=== PATIENT | female | born 1950 | race Caucasian/White ===

== ENCOUNTER 2019-08-31 12:03 | Emergency (ER) | payer MEDICARE, OTHER ==
[~2019-08-31] VITALS: Ht 162.6 cm; Wt 73.0 kg
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
--- NOTE | 2019-08-31 13:36 | NUR ---
BAIRON PA IN TO DISCUSS ALL RADIOLOGY EXAMS. PT GIVEN DISCHARGE INSTRUCTIONS. PT VERBALIZES UNDERSTANDING OF ALL INSTRUCTIONS AND FOLLOW UP. PT AMBULATED OUT OF ED PER PEDIS WITH DAUGHTER.
[2019-08-31 13:37] VITALS: BP 118/75
== END 2019-08-31 13:39 | disposition home or self-care (01) ==
LOC: ED 13:20
DX: S00.83XA Contusion of other part of head, initial encounter (principal); D32.0 Benign neoplasm of cerebral meninges; M48.02 Spinal stenosis, cervical region; V49.40XA Driver injured in collision with unspecified motor vehicles in traffic accident, initial encounter; Y93.89 Activity, other specified; Y92.488 Other paved roadways as the place of occurrence of the external cause; Y99.8 Other external cause status
CPT/HCPCS: 70450; 70486; 72125; 99285